=== PATIENT | female | born 1960 | race Caucasian/White ===

== ENCOUNTER 2018-03-06 15:49 | Emergency (ER) | payer OTHER ==
[~2018-03-06] VITALS: Ht 172.7 cm; Wt 136.1 kg
[~2018-03-06 15:49] MED LIST: ALEVE220 MG PO; FLOVENT HFA 2220 MCG INH; NOHOMEMEDICATIONS; PRILOSEC 20 MG20 MG PO; ZANTAC 150MG T150 MG PO
[2018-03-06] MEDS ORDERED: KEFLEX500 M1 PO (15:57)
[2018-03-06] MEDS ORDERED: MOBIC7.5 MG PO (15:59)
[2018-03-06 17:01] VITALS: BP 144/81
[2018-03-06] MEDS ORDERED: NORCO 5-325 TA1 EACH PO (17:03)
[2018-03-06] MEDS ORDERED: BACTRIM DS TAB1 EACH PO (17:03)
== END 2018-03-06 17:01 | disposition home or self-care (01) ==
LOC: ER 15:49
DX: N61.1 Abscess of the breast and nipple (principal); Z87.891 Personal history of nicotine dependence; Z88.0 Allergy status to penicillin; Z90.89 Acquired absence of other organs

== ENCOUNTER → 2019-06-14 | Outpatient (CLI) | payer OTHER ==
[~2019-06-14] MED LIST changes: +BACTRIM DS TAB1 EACH PO; +KEFLEX500 M1 PO; +MOBIC7.5 MG PO; +NORCO 5-325 TA1 EACH PO
== END ==
LOC: SJCVCIMAG 07:53
DX: R00.2 Palpitations (principal); R06.00 Dyspnea, unspecified; E78.5 Hyperlipidemia, unspecified; I10 Essential (primary) hypertension; I25.10 Atherosclerotic heart disease of native coronary artery without angina pectoris